=== PATIENT | female | born 1950 | race Two or more races ===

== ENCOUNTER 2018-10-01 16:59 | Emergency (ER) | payer MEDICARE, OTHER ==
[~2018-10-01] VITALS: Ht 152.4 cm; Wt 56.7 kg
[2018-10-01 17:35] LABS: BASOPHILS % (AUTO) 0.7 % (0.0-2.0); EOSINOPHILS # (AUTO) 0.1 K/uL (0.0-0.7); EOSINOPHILS % (AUTO) 1.3 % (0.0-7.0); LYMPHOCYTES # (AUTO) 1.7 K/uL (20.0-40.0); LYMPHOCYTES % (AUTO) 33.2 % (20.5-51.5); MEAN CORPUSCULAR HEMOGLOBIN 32.8 uug (24.7-32.8); MEAN CORPUSCULAR HGB CONC 34 g/dL (32.3-35.6); MEAN CORPUSCULAR VOLUME 95.6 fL (75.5-95.3); MONOCYTES # (AUTO) 0.4 K/uL (2.0-10.0); MONOCYTES % (AUTO) 7.2 % (0.0-11.0); NEUTROPHILS # (AUTO) 2.9 K/uL (1.8-8.9); NEUTROPHILS % (AUTO) 57.6 % (38.5-71.5); PLATELET COUNT (AUTO) 266 K/uL (179-408); RED BLOOD CELL COUNT(AUTO) 3.66 MIL/uL (3.63-4.92)
[2018-10-01 17:48] LABS: ALANINE AMINOTRANSFERASE 14 U/L (14-59); ALKALINE PHOSPHATASE 118 U/L (50-136); ASPARTATE AMINOTRANSFERASE 5 U/L (15-37); BILIRUBIN,DIRECT 0.1 mg/dL (0.0-0.2); BILIRUBIN,TOTAL 0.4 mg/dL (0.2-1.0); CARBON DIOXIDE 26 mmol/L (21-32); CHLORIDE 106 mmol/L (98-107); CREATININE 0.8 mg/dL (0.6-1.3); GLUCOSE 120 mg/dL (74-106); POTASSIUM 4.4 mmol/L (3.5-5.1); TOTAL PROTEIN, SERUM 7.5 g/dL (6.4-8.2); UREA NITROGEN, BLOOD 16 mg/dL (7-18)
[2018-10-01 17:49] LABS: ETHANOL < 3 MG/DL (0-0)
[2018-10-01] MEDS ORDERED: METF-440 PO (18:00)
[2018-10-01] MEDS ORDERED: ACET-2154 PO (18:00)
[2018-10-01] MEDS ORDERED: LISI10TA5 PO (18:00)
[2018-10-01] MEDS ORDERED: DIVA125C2 PO (18:00)
[2018-10-01] MEDS ORDERED: OLAN5TAB30 PO (18:00)
[2018-10-01] MEDS ORDERED: PARO30TA4 PO (18:00)
[2018-10-01 18:03] LABS: ACETAMINOPHEN < 2.0 ug/mL (10-30)
--- NOTE | 2018-10-01 18:13 | NUR ---
PT IS IN ROOM #2B. DR LICEA EVALUATED THE PT.
--- NOTE | 2018-10-01 18:32 | NUR ---
DR LICEA TALKED TO NEUROSURGEON DR SIMONS. PT IS GOING TO BE TRANSFERED TO [facility]. CONTINUE TO MONITOR THE PT.
--- NOTE | 2018-10-01 19:17 | NUR ---
PT'S INFORMATION WAS [facility]ED [facility]. ( FAX: [phone]). REPORT WAS GIVEN TO ATTACHE ARTI FERGUSON.
--- NOTE | 2018-10-01 19:27 | NUR ---
Nursing Note: Pt does not follow commands, redirected as needed. Fall precautions observed frequently. Frequent visual checks. Pt in room adjacent to nursing station. No complaints of pain.
--- NOTE | 2018-10-01 20:00 | NUR ---
Nursing Note: Notified security that patient was constantly attempting to elope. Security at patients bedside to monitor. Contact Anamika at transfer center; Linda Mcmillan. Still awaiting bed.
--- NOTE | 2018-10-01 20:35 | NUR ---
Nursing Note: Received call back from [facility]. Pt to be transfered to room 4404 bed 1. Report to be called into [phone] extension [phone]. Contacted [facility] to set up transportation. ETA 30 minutes. Trip number [id number]
[2018-10-01 21:08] VITALS: BP 126/86
== END 2018-10-01 21:10 | disposition short-term general hospital (02) ==
LOC: ER 17:03
DX: Z04.6 Encounter for general psychiatric examination, requested by authority (principal); S06.5X9A Traumatic subdural hemorrhage with loss of consciousness of unspecified duration, initial encounter; Z79.899 Other long term (current) drug therapy; W19.XXXA Unspecified fall, initial encounter; Y93.89 Activity, other specified; Y92.89 Other specified places as the place of occurrence of the external cause; Y99.8 Other external cause status
CPT/HCPCS: 36415; 70450; 80048; 80076; 80164; 85025; 85730; 93005; 99285; G0480 ×2; G0481; A4663